=== PATIENT | male | born 1955 | race Caucasian/White ===

== ENCOUNTER 2017-01-11 08:10 | Emergency (ER) | payer OTHER ==
[2017-01-11 08:31] VITALS: BP 131/83; PULSE 80; RESP 16; TEMP 97.7; O2SAT 94
--- NOTE | 2017-01-11 08:39 | UCPHY ---
H & P Patient Type: New Chief Complaint Nursing Narrative: pt had fall skiing yesterday 2pm . hit head. denies LOC or any headache. + helmet. Today here with c/o neck pain chestpain and back pain bilaterally . Time Seen by Provider: 01/11/17 08:21 HPI/ROS: CHIEF COMPLAINT: Ski crash HISTORY OF PRESENT ILLNESS: Patient is a 62-year-old man who comes to the Urgent Care concerned about rib fracture. He states that he was skiing yesterday and came out of a finding and landed directly on the top of his head. He was wearing helmet. He did not have any significant pain at the time. He did not lose consciousness. Was going approximately 15 mph. Today however his very sore in his neck and upper chest and back. He states that it is worse with movement. He denies shortness of breath. History of cardiac or pulmonary disease. He did fracture 6 ribs last year skiing and has a plate. REVIEW OF SYSTEMS: Constitutional: denies: chills, fever, recent illness, recent injury EENTM: denies: blurred vision, double vision, nose congestion Respiratory: denies: cough, shortness of breath Cardiac: denies: chest pain, irregular heart rate, lightheadedness, palpitations Gastrointestinal/Abdominal: denies: abdominal pain, diarrhea, nausea, vomiting, blood streaked stools Genitourinary: denies: dysuria, frequency, hematuria, pain Musculoskeletal: see HPI Skin: denies: lesions, rash, jaundice, bruising Neurological: denies: headache, numbness, paresthesia, tingling, dizziness, weakness Hematologic/Lymphatic: denies: blood clots, easy bleeding, easy bruising Immunologic/allergic: denies: HIV/AIDS, transplant EXAM: GENERAL: Well-appearing, well-nourished and in no acute distress. HEAD: Atraumatic, normocephalic. EYES: Pupils equal round and reactive to light, extraocular movements intact, sclera anicteric, conjunctiva are normal. ENT: TMs normal, nares patent, oropharynx clear without exudates. Moist mucous membranes. NECK: No bony tenderness, step-offs, Normal range of motion, supple without lymphadenopathy or JVD. LUNGS: Breath sounds clear to auscultation bilaterally and equal. No wheezes rales or rhonchi. No palpable crepitus or rib fractures. HEART: Regular rate and rhythm without murmurs, rubs or gallops. ABDOMEN: Soft, nontender, normoactive bowel sounds. No guarding, no rebound. No masses appreciated. BACK: No CVA tenderness, no spinal tenderness, step-offs or deformities EXTREMITIES: Normal range of motion, no pitting or edema. No clubbing or cyanosis. NEUROLOGICAL: Cranial nerves II through XII grossly intact. Normal speech, normal gait. 5/5 strength, normal movement in all extremities, normal sensation PSYCH: Normal mood, normal affect. SKIN: Warm, dry, normal turgor, no visible rashes or lesions. Source: Patient - Personal History Current Tetanus Diphtheria and Acellular Pertussis (TDAP): Yes - Medical/Surgical History Hx Asthma: No Hx Chronic Respiratory Disease: No Hx Diabetes: No Hx Cardiac Disease: No Hx Renal Disease: No Hx Cirrhosis: No Other PMH: ortho surgery. rib repair on left. sinus surg. acl - Family History Significant Family History: No pertinent family hx - Social History Smoking Status: Current some day smoker Alcohol Use: Sober Drug Use: None Constitutional: Initial Vital Signs Temperature (C) 36.5 C 01/11/17 08:24 Heart Rate 80 01/11/17 08:24 Respiratory Rate 16 01/11/17 08:24 Blood Pressure 131/83 H 01/11/17 08:24 O2 Sat (%) 94 01/11/17 08:24 O2 Delivery Mode Room Air Allergies/Adverse Reactions: aspirin Allergy (Verified 01/11/17 08:31) Home Medications: Medication Instructions Recorded NK [No Known Home Meds] 01/11/17 Medical Decision Making - Diagnostics Imaging: Imaging Impressions Chest X-Ray 01/11/17 08:36 Impression: 1. No acute posttraumatic findings. 2. Probable bronchitis. 3. Multiple old healed left rib fractures. Findings discussed with Giuliano Farris on January 11, 2017 at 9:31 a.m. X-ray: chest x-ray was obtained. I viewed the images myself on the PACS system. My interpretation of the images is: Negative for fractures, mild middle lobe haziness possibly muscle overlying versus bronchitis. The radiologist interpretation is same. X-ray: Cervical spine x-ray was obtained. I viewed the images myself on the PACS system. My interpretation of the images is: negative for acute disease . The radiologist interpretation is pending. ED Course/Re-evaluation: Discussed the x-ray images with Dr. Camp. He does not feel like these represent pulmonary contusion but rather a resolving bronchitis versus muscle tissue overlying the images. The patient does state that he is over coming bronchitis in the symptoms are much better since he stop smoking marijuana 2 weeks ago. He does not have a fever or cough. He is not short of breath. He is not hypoxic. He is relieved with the x-ray results. we discussed treatment. He declines further workup or testing at this time. Differential Diagnosis: Partial list of the Differential diagnosis considered include but were not limited to; rib fracture, pneumothorax, spinal injury, head injury, concussion , bronchitis and although unlikely based on the history and physical exam, I also considered spinal cord injury, pneumothorax, acute coronary disease, PE. I discussed these differential diagnoses and the plan with the patient as well as the usual and expected course. The patient understands that the diagnosis is provisional and that in medicine we are not always correct and that further workup is often warranted. Usual and customary warnings were given. All of the patient's questions were answered. The patient was instructed to return to the emergency department should the symptoms at all worsen or return, otherwise to followup with the physician as we discussed. Departure - Departure Disposition: Home, Routine, Self-Care Clinical Impression: Acute chest wall pain Neck muscle strain Qualifiers: Encounter type: initial encounter Qualified Code(s): S16.1XXA - Strain of muscle, fascia and tendon at neck level, initial encounter Condition: Fair Instructions: Cervical Strain (ED), Chest Wall Pain (ED) Referrals: Doctor Not,On Staff, [Primary Care Provider] - As per Instructions Grey Rm MD [Medical Doctor] - As per Instructions - PQRS PQRS Measurement: Not applicable
== END 2017-01-11 09:36 | disposition home or self-care (01) ==
LOC: CED 08:10
DX: S16.1XXA Strain of muscle, fascia and tendon at neck level, initial encounter (principal); R07.89 Other chest pain; Y93.23 Activity, snow (alpine) (downhill) skiing, snowboarding, sledding, tobogganing and snow tubing; V00.321A Fall from snow-skis, initial encounter; Y92.828 Other wilderness area as the place of occurrence of the external cause; Y99.8 Other external cause status; F17.200 Nicotine dependence, unspecified, uncomplicated; Z87.81 Personal history of (healed) traumatic fracture
CPT/HCPCS: 71020-PO; 72040-PO; G0463-PO